=== PATIENT | male | born 1985 ===

== ENCOUNTER 2023-03-13 11:11 | Emergency (ER) | payer BC ==
[2023-03-13] MEDS ORDERED: METHYLPREDNISOLONE 125 MG INJ ONE (11:35)
[2023-03-13] MEDS ORDERED: FAMOTIDINE 20 MG/2 ML VIAL IV ONE ×2 (11:35→11:36)
[2023-03-13] MEDS ORDERED: NA CHLORIDE 0.9% 1,000 ML ONE (11:35)
[2023-03-13] MEDS ORDERED: DIPHENHYDRAMINE 50 MG/ML VIAL ONE (11:35)
--- NOTE | 2023-03-13 12:38 | EDPHYS ---
Physician Documentation [facility] Name: Jnoas Amaro Age: 37 yrs Sex: Male : 1985 Arrival Date: 03/13/2023 Time: 11:11 Bed 17 Private MD: ED Physician Alessandro Krueger HPI: 03/13 12:41 This 37 yrs old Unknown Male presents to ER via Ambulatory with complaints of Breathing kb Difficulty, Allergic Reaction. 12:41 The patient presents with itching, rash, redness of skin. Onset: The symptoms/episode kb began/occurred 1 hour(s) ago. Associated signs and symptoms: Pertinent positives: hives, rash. Possible causes: The patient has no known obvious cause for the symptoms. At home the patient or guardian has treated the symptoms with Benadryl. Severity of symptoms: At their worst the symptoms were moderate in the emergency department the symptoms are unchanged. The patient has not experienced similar symptoms in the past. The patient has not recently seen a physician. Historical: - Allergies: 11:20 crab; mb9 - Home Meds: 11:20 losartan oral [Active]; nebivolol oral [Active]; mb9 - PMHx: 11:20 Hypertensive disorder; mb9 - PSHx: 11:20 None; mb9 - Immunization history:: Adult Immunizations up to date. - Social history:: Smoking status: Patient denies any tobacco usage or history of. ROS: 12:39 Constitutional: Negative for fever, chills, and weight loss, kb 12:39 ENT: Positive for scratchy throat, 12:39 Skin: Positive for erythema, rash, diffusely, 12:39 All other systems are negative, Exam: 12:40 Constitutional: This is a well developed, well nourished patient who is awake, alert, kb and in no acute distress. Head/Face: Normocephalic, atraumatic. ENT: Moist Mucous membranes Cardiovascular: Regular rate Respiratory: Respirations even and unlabored. No increased work of breathing. Talking in full sentences Abdomen/GI: Soft, non-tender. No distention MS/ Extremity: Pulses equal, no cyanosis. Neurovascular intact. Full, normal range of motion. Neuro: Awake and alert, GCS 15, oriented to person, place, time, and situation. Moves all extremities. Normal gait. 12:40 Skin: rash a moderate rash is noted, consistent with urticaria, and is diffusely located, Vital Signs: 11:18 BP 147 / 104; Pulse 83; Resp 18; Temp 98; Pulse Ox 100% on R/A; Weight 86.64 kg; Height mb9 5 ft. 7 in. ; 11:25 BP 183 / 99; Pulse 89; Resp 16; Pulse Ox 100% on R/A; db 11:35 BP 167 / 98; Pulse 73; Resp 16; Pulse Ox 100% on R/A; db 12:00 BP 151 / 100; Pulse 75; Resp 20; Pulse Ox 100% on R/A; db 12:43 BP 152 / 98; Pulse 70; Resp 18 S; Pulse Ox 98% on R/A; kc6 11:18 Body Mass Index 29.92 (86.64 kg, 170.18 cm) mb9 MDM: 11:17 Patient medically screened. kb 12:40 Data reviewed: vital signs, nurses notes. Counseling: I had a detailed discussion with kb the patient and/or guardian regarding the historical points, exam findings, and any diagnostic results supporting the discharge/admit diagnosis, the need for outpatient follow up, a family practitioner, to return to the emergency department if symptoms worsen or persist or if there are any questions or concerns that arise at home. Response to treatment: the patient's symptoms have markedly improved after treatment. 12:41 Differential diagnosis: anaphylaxis, angioedema, urticaria. kb 03/13 11:20 Order name: IV Start; Complete Time: 11:32 kb Administered Medications: 11:33 Drug: Famotidine IVP 20 mg IVP once; dilute with 10 mL 0.9% NaCl; give over 2 minutes ap3 Route: IVP; Site: right hand; 12:46 Follow up: Response: No adverse reaction kc6 11:33 Drug: MethylPrednisoLONE IVP 125 mg IVP once Route: IVP; Site: right hand; ap3 12:46 Follow up: Response: No adverse reaction kc6 11:33 Drug: diphenhydrAMINE IVP 25 mg IVP once Route: IVP; Site: right hand; ap3 12:46 Follow up: Response: No adverse reaction kc6 11:34 Drug: NS 0.9% IV 1000 ml IV at 1000 ml once Route: IV; Rate: 1000 ml; Site: right hand; ap3 12:15 Follow up: Response: No adverse reaction; IV Status: Completed infusion; IV Intake: db 1000ml Disposition Summary: 03/13/23 12:37 Discharge Ordered Notes: Location: Home kb Condition: Stable kb Diagnosis - Allergic urticaria kb Followup: kb - With: Emergency Department - When: As needed - Reason: Worsening of condition Followup: kb - With: Private Physician - When: 2 - 3 days - Reason: Recheck today's complaints, Continuance of care, Re-evaluation by your physician Discharge Instructions: - Discharge Summary Sheet kb - Hives, [id number] kb Forms: - Medication Reconciliation Form kb - Thank You Letter kb - Antibiotic Education kb - Prescription Opioid Use kb - Patient Portal Instructions kb - Leadership Thank You Letter kb - Work release form db Prescriptions: - Pepcid 20 mg Oral Tablet - take 1 tablet ORAL route every 12 hours for 5 days; 10 tablet; Refills: 0, kb Product Selection Permitted - Prednisone 20 mg Oral Tablet - take 1 tablet ORAL route once daily for 5 days; 5 tablet; Refills: 0, Product kb Selection Permitted Signatures: Frida Rios, [employer]-C [employer]-Britni Hutchison RN RN ap3 Cinda Beckwith RN RN mb9 Tracy Lake RN kc6 Aixa Laguna RN db
--- NOTE | 2023-03-13 12:38 | ER ---
Nurse's Notes [facility] Name: Jonas Amaro Age: 37 yrs Sex: Male : 1985 Arrival Date: 03/13/2023 Time: 11:11 Bed 17 Private MD: Diagnosis: Allergic urticaria Presentation: 03/13 11:18 Chief complaint: Patient states: "I started having a rash 1 hr ago and feels like I'm mb9 having trouble breathing now. I didn't eat or drink anything differently.". Coronavirus screen: Vaccine status: Patient reports receiving the 2nd dose of the covid vaccine. Ebola Screen: No symptoms or risks identified at this time. Initial Sepsis Screen: Does the patient meet any 2 criteria? No. Patient's initial sepsis screen is negative. Does the patient have a suspected source of infection? No. Patient's initial sepsis screen is negative. Risk Assessment: Do you want to hurt yourself or someone else? Patient reports no desire to harm self or others. Onset of symptoms was March 13, 2023. 11:18 Method Of Arrival: Ambulatory 9 11:18 Acuity: LUIS 3 mb9 Triage Assessment: 11:21 General: Appears uncomfortable, Behavior is cooperative. Pain: Denies pain. Neuro: mb9 Cruz Agitation-Sedation Scale (RASS): 0 - Alert and Calm. Cardiovascular: Patient's skin is warm and dry. Respiratory: Airway is patent Respiratory effort is even, unlabored, Respiratory pattern is regular, symmetrical, Onset: The symptoms/episode began/occurred suddenly, the patient has moderate shortness of breath. Derm: Skin is pink, warm \\T\\ dry. Musculoskeletal: Range of motion: intact in all extremities. 11:22 Derm: Rash noted that is itchy, papular, red, on chest, right arm, left arm and neck. mb9 Historical: - Allergies: 11:20 crab; mb9 - Home Meds: 11:20 losartan oral [Active]; nebivolol oral [Active]; mb9 - PMHx: 11:20 Hypertensive disorder; mb9 - PSHx: 11:20 None; mb9 - Immunization history:: Adult Immunizations up to date. - Social history:: Smoking status: Patient denies any tobacco usage or history of. Screenin:35 [facility] ED Fall Risk Assessment (Adult) History of falling in the last 3 months, db including since admission No falls in past 3 months (0 pts) Confusion or Disorientation No (0 pts) Intoxicated or Sedated No (0 pts) Impaired Gait No (0 pts) Mobility Assist Device Used No (0 pt) Altered Elimination No (0 pt) Score/Fall Risk Level 0 - 2 = Low Risk Oriented to surroundings, Maintained a safe environment. Abuse screen: Denies threats or abuse. Denies injuries from another. Nutritional screening: No deficits noted. Tuberculosis screening: No symptoms or risk factors identified. Assessment: 11:33 Reassessment: Patient appears in no apparent distress at this time. Patient and/or db family updated on plan of care and expected duration. Pain level reassessed. Patient is alert, oriented x 3, equal unlabored respirations, skin warm/dry/pink. PT STATES WOKE UP TODAY WITH RASH, ITCHING AND FEELING DIFFICULT TO BREATH. General: Appears in no apparent distress. comfortable, Behavior is calm, cooperative. Neuro: No deficits noted. Level of Consciousness is awake, alert, obeys commands, Oriented to person, place, time, situation. Cardiovascular: No deficits noted. Rhythm is sinus rhythm. Respiratory: Reports shortness of breath Airway is patent Respiratory effort is even, unlabored, Respiratory pattern is regular, symmetrical, Breath sounds are clear bilaterally. GI: No deficits noted. No signs and/or symptoms were reported involving the gastrointestinal system. Derm: Rash noted that is raised, on face and neck and left arm and right arm and chest Reports itching. 12:17 Reassessment: Patient appears in no apparent distress at this time. Patient and/or db family updated on plan of care and expected duration. Pain level reassessed. Patient is alert, oriented x 3, equal unlabored respirations, skin warm/dry/pink. PT REDNESS AND RASH DECREASED. STATES FEELS BETTER Patient states feeling better. Patient states symptoms have improved. Vital Signs: 11:18 BP 147 / 104; Pulse 83; Resp 18; Temp 98; Pulse Ox 100% on R/A; Weight 86.64 kg; Height mb9 5 ft. 7 in. ; 11:25 BP 183 / 99; Pulse 89; Resp 16; Pulse Ox 100% on R/A; db 11:35 BP 167 / 98; Pulse 73; Resp 16; Pulse Ox 100% on R/A; db 12:00 BP 151 / 100; Pulse 75; Resp 20; Pulse Ox 100% on R/A; db 12:43 BP 152 / 98; Pulse 70; Resp 18 S; Pulse Ox 98% on R/A; kc6 11:18 Body Mass Index 29.92 (86.64 kg, 170.18 cm) mb9 ED Course: 11:15 Patient arrived in ED. mg5 11:17 Frida [facility]C [facility] kb 11:17 Alessandro Krueger MD is Attending Physician. kb 11:20 Triage completed. mb9 11:21 Arm band placed on. mb9 11:28 Aixa Laguna, CHRISTOPHER is Primary Nurse. db 11:34 Inserted saline lock: 22 gauge in right hand, using aseptic technique. Missed ds4 attempt(s): 22 gauge in right antecubital area. Bleeding controlled, band aid applied, catheter tip intact. 12:17 Patient has correct armband on for positive identification. Bed in low position. Call db light in reach. Side rails up X 1. Client placed on continuous cardiac and pulse oximetry monitoring. NIBP monitoring applied. Warm blanket given. 13:00 Provided Education on: DISCHARGE. db 13:12 No provider procedures requiring assistance completed. IV discontinued, intact, iw bleeding controlled, No redness/swelling at site. Pressure dressing applied. Administered Medications: 11:33 Drug: Famotidine IVP 20 mg IVP once; dilute with 10 mL 0.9% NaCl; give over 2 minutes ap3 Route: IVP; Site: right hand; 12:46 Follow up: Response: No adverse reaction kc6 11:33 Drug: MethylPrednisoLONE IVP 125 mg IVP once Route: IVP; Site: right hand; ap3 12:46 Follow up: Response: No adverse reaction kc6 11:33 Drug: diphenhydrAMINE IVP 25 mg IVP once Route: IVP; Site: right hand; ap3 12:46 Follow up: Response: No adverse reaction kc6 11:34 Drug: NS 0.9% IV 1000 ml IV at 1000 ml once Route: IV; Rate: 1000 ml; Site: right hand; ap3 12:15 Follow up: Response: No adverse reaction; IV Status: Completed infusion; IV Intake: db 1000ml Medication: 13:12 VIS not applicable for this client. iw Intake: 12:15 IV: 1000ml; Total: 1000ml. db Outcome: 12:37 Discharge ordered by MD. russell 13:12 Discharged to home ambulatory, iw 13:12 Condition: good 13:12 Discharge instructions given to patient, Instructed on discharge instructions, follow up and referral plans. medication usage, Demonstrated understanding of instructions, follow-up care, medications, Prescriptions given X 2, 13:12 Patient left the ED. iw Signatures: Frida Rios, LEAD HOUSEKEEPER-C LEAD HOUSEKEEPER-CkCait Valle, RN RN iw Avery Barnes ds4 Britin Encinas RN RN ap3 Tracy Lake RN RN kc6 Aixa Laguna RN RN db Cinda Beckwith, RN RN mb9 Mónica Lamb mg5 Corrections: (The following items were deleted from the chart) 11:22 11:18 Pulse 83bpm; Resp 18bpm; Pulse Ox 100% RA; Temp 98F; 86.64 kg; Height 5 ft. 7 mb9 in.; BMI: 29.9; mb9 11:22 11:21 Respiratory: Airway is patent Respiratory effort is even, unlabored, Respiratory mb9 pattern is regular, symmetrical, Onset: The symptoms/episode began/occurred suddenly, mb9 13:18 12:17 Provided Education on: DISCHARGE. db db
[2023-03-13 13:34] VITALS: TEMP 98
[2023-03-13 13:39] VITALS: BP 152/98; O2SAT 98
== END 2023-03-13 13:12 | disposition home or self-care (01) ==
LOC: ER 11:11
DX: L50.0 Allergic urticaria (principal); I10 Essential (primary) hypertension; Z91.013 Allergy to seafood
CPT/HCPCS: J1200; J2930; J7030